=== PATIENT | male | born 1955 | race Caucasian/White ===

== ENCOUNTER → 2024-04-01 06:37 | Outpatient (REF) | payer MEDICARE, OTHER, SELFPAY ==
[2024-04-01 08:29] LABS: Blood Urea Nitrogen 17 mg/dl (9-20); Calcium 9.8 mg/dl (8.4-10.2); Carbon Dioxide 29 mmol/L (22-30); Chloride 97 mmol/L (98-107); Glucose 114 mg/dl (70-99); Potassium 4.4 mmol/L (3.5-5.1); Sodium 137 mmol/L (135-145); eGFR > 60.00
== END ==
LOC: REG 06:37
PROVIDERS: ATTENDING PHYSICIAN Family Medicine
DX: I10 Essential (primary) hypertension (principal)
CPT/HCPCS: 36415; 80048

== ENCOUNTER → 2024-05-09 08:03 | Outpatient (REF) | payer MEDICARE, OTHER, SELFPAY | LOC: RAD 08:03 | PROVIDERS: ATTENDING PHYSICIAN Internal Medicine Gastroenterology; FAMILY PHYSICIAN Family Medicine | DX: R93.5 Abnormal findings on diagnostic imaging of other abdominal regions, including retroperitoneum (principal) | CPT/HCPCS: 74176 ==

== ENCOUNTER → 2024-05-31 10:47 | Outpatient (REF) | payer MEDICARE, OTHER, SELFPAY | LOC: PAVMRI 10:47 | PROVIDERS: ATTENDING PHYSICIAN Specialist; FAMILY PHYSICIAN Family Medicine | DX: M25.561 Pain in right knee (principal) | CPT/HCPCS: 73721 ==

== ENCOUNTER → 2024-06-08 16:06 | Outpatient (REF) | payer MEDICARE, OTHER, SELFPAY ==
[2024-06-08 17:19] LABS: % Basophils 0.5 % (0-2); % Eosinophils 1.5 % (0-6); % Immature Granulocytes 0.3 % (0-0.5); % Lymphocytes 16.9 % (20.5-51.1); % Monocytes 9.4 % (1.7-9.3); % Neutrophils 71.4 % (42.2-75.2); Absolute Basophils 0.1 10^3/uL (0-0.2); Absolute Eosinophils 0.2 10^3/uL (0-0.7); Absolute Lymphocytes 2.2 10^3/uL (1.2-3.4); Absolute Monocytes 1.2 10^3/uL (0.1-0.6); Absolute Neutrophils 9.3 10^3/uL (1.4-6.5); Hematocrit 40.6 % (39.0-52.0); Hemoglobin 14.4 g/dL (13.0-18.0); Mean Corp Hgb Conc. 35.5 g/dL (33.0-37.0); Mean Corpuscular Hgb 30.8 pg (27.0-31.0); Mean Corpuscular Volume 86.8 fL (80.0-94.0); Mean Platelet Volume 10.1 fL (7.4-10.4); Nucleated Red Blood Cells % 0 % (-); Platelet Count 368 10^3/uL (130-400); Red Blood Cell Count 4.68 10^6/uL (4.70-6.10); Red Cell Dist. Width 12.6 % (11.5-14.5)
[2024-06-08 17:33] LABS: Blood Urea Nitrogen 18 mg/dl (9-20); Calcium 10.2 mg/dl (8.4-10.2); Carbon Dioxide 27 mmol/L (22-30); Chloride 98 mmol/L (98-107); Glucose 94 mg/dl (70-99); Potassium 4.5 mmol/L (3.5-5.1); Sodium 139 mmol/L (135-145); eGFR > 60.00
== END ==
LOC: REG 16:06
PROVIDERS: ATTENDING PHYSICIAN Specialist; FAMILY PHYSICIAN Family Medicine
DX: Z01.818 Encounter for other preprocedural examination (principal)
CPT/HCPCS: 36415; 80048; 85025; 93005

== ENCOUNTER 2024-10-02 06:17 | Day surgery (SDC) | payer MEDICARE, OTHER, SELFPAY | END 2024-10-02 16:09 | disposition home or self-care (01) | LOC: GI 06:17 | PROVIDERS: ATTENDING PHYSICIAN Specialist | DX: R93.3 Abnormal findings on diagnostic imaging of other parts of digestive tract (principal); K57.30 Diverticulosis of large intestine without perforation or abscess without bleeding; K52.9 Noninfective gastroenteritis and colitis, unspecified; D17.5 Benign lipomatous neoplasm of intra-abdominal organs; K63.89 Other specified diseases of intestine | CPT/HCPCS: 45380; 88305 ==

== ENCOUNTER → 2024-12-29 06:39 | Outpatient (REF) | payer MEDICARE, OTHER, SELFPAY ==
[2024-12-29 08:03] LABS: Hematocrit 43.3 % (39.0-52.0); Hemoglobin 14.8 g/dL (13.0-18.0); Mean Corp Hgb Conc. 34.2 g/dL (33.0-37.0); Mean Corpuscular Volume 88.9 fL (80.0-94.0); Nucleated Red Blood Cells % 0 % (-); Platelet Count 289 10^3/uL (130-400); Red Cell Dist. Width 12.6 % (11.5-14.5)
[2024-12-29 08:10] LABS: Urine Character Clear (Clear)
[2024-12-29 08:29] LABS: ALT (SGPT) 23 U/L (0-50); AST (SGOT) 21 U/L (17-59); Albumin 5.0 g/dl (3.5-5.0); Alkaline Phosphatase 90 U/L (38-126); Blood Urea Nitrogen 21 mg/dl (9-20); Calcium 10.1 mg/dl (8.4-10.2); Carbon Dioxide 28 mmol/L (22-30); Chloride 100 mmol/L (98-107); Glucose 114 mg/dl (70-99); HDL Cholesterol 50 mg/dl; LDL Cholesterol, Calculated 69 mg/dl; Potassium 5.1 mmol/L (3.5-5.1); Sodium 137 mmol/L (135-145); Total Protein 8.3 g/dl (6.3-8.2); Very Low Density Lipoprotein 9 mg/dl (0-30); eGFR > 60.00
[2024-12-29 08:54] LABS: PSA, Total - Screen 0.73 ng/ml (0.0-4.0); TSH 3.81 uIU/ml (0.47-4.68)
[2024-12-29 09:05] LABS: Glycohemoglobin (HgbA1c) 5.5 % (4.0-5.6)
[2024-12-29 09:11] LABS: Microalb - Urine Creatinine 80.000 mg/dl
[2024-12-29 09:16] LABS: Microalbumin, Random Urine < 0.6 mg/dl (0.6-1.7)
[2024-12-29 09:37] LABS: Urine Squamous Cell 0-2 /LPF (Few)
[2024-12-29 09:40] LABS: Urine Red Blood Cell 0-2 /HPF (0-2); Urine White Cell 0-2 /HPF (0-5)
== END ==
LOC: REG 06:39
PROVIDERS: ATTENDING PHYSICIAN Student in an Organized Health Care Education/Training Program; FAMILY PHYSICIAN Family Medicine
DX: R73.09 Other abnormal glucose (principal); Z00.00 Encounter for general adult medical examination without abnormal findings; E78.2 Mixed hyperlipidemia; I10 Essential (primary) hypertension; Z12.5 Encounter for screening for malignant neoplasm of prostate
CPT/HCPCS: 36415; 80053; 80061; 81003; 81015; 82043; 82570; 83036; 84443; 85025; G0103